=== PATIENT | female | born 1940 | race Caucasian/White ===

== ENCOUNTER 2023-03-02 08:47 | Outpatient (CLI) | payer MEDICARE, SELFPAY ==
--- NOTE | ~2023-03-02 | MR_ITS ---
MRI/MRCP of the abdomen: Clinical indication: Common bile duct dilatation. Technique: Coronal SSFSE ARC, WATER:coronal LAVA-FLEX, Coronal 2D FIESTA FatSat, Axial SSFSE BH ARC, Axial 3D DualEcho BH, Axial SSFSE-IR, Axial DWI b=500, Axial 2D FIESTA FatSat, pre and dynamic postco ntrast Axial LAVA ARC, postcontrast Coronal In and Opposed phase LAVA FLEX. Following intravenous adm inistration of 11 cc MultiHance gadolinium, T1-weighted fat-sat imaging was performed in the axial an d coronal planes. Findings: Patient is status post cholecystectomy.. There is minimal central intrahepatic biliary dila tation and mild dilatation of common hepatic duct to 9 mm in diameter. Remainder of the common bile d uct essentially normal in course and caliber. The pancreatic duct is normal in size. 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 No other hepatic abnormality seen. The spleen, pancreas, adrenals, kidneys appear normal. The aorta and the paraaortic regions appear normal. Impression: Minimal central intrahepatic biliary dilatation and mild dilatation of common hepatic duct is likely related to prior cholecystectomy. Common bile duct is nondilated, with no evidence of filling defect. 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 Reviewed, dictated and finalized at [facility]. Impression: Minimal central intrahepatic biliary dilatation and mild dilatation of common h epatic duct is likely related to prior cholecystectomy. Common bile duct is nondilated, with no evidence of filling defect. 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
== END 2023-03-02 08:48 | disposition home or self-care (01) ==
PROVIDERS: Visit Provider Internal Medicine
DX: K83.8 Other specified diseases of biliary tract (principal)
CPT/HCPCS: 74183; 76376; A9577